=== PATIENT | male | born 1990 | race Two or more races ===

== ENCOUNTER 2019-06-01 10:56 | Emergency (ER) | payer SELFPAY ==
[~2019-06-01] VITALS: Ht 188 cm; Wt 102.5 kg
--- NOTE | 2019-06-01 12:05 | NUR ---
bib self c/o cough and congestion x over a month, denies cp, sob, n/v/d/. kept comfortable. will cont to monitor.
--- NOTE | 2019-06-01 12:10 | NUR ---
SVITLANA with patient for eval.
--- NOTE | 2019-06-01 12:19 | NUR ---
Patient discharged to home in stable condition. Written and verbal after care instructions given. Patient verbalizes understanding of instruction.
[2019-06-01 12:21] VITALS: BP 136/88
== END 2019-06-01 12:21 | disposition home or self-care (01) ==
LOC: ER 11:03
DX: R05 Cough (principal); F10.10 Alcohol abuse, uncomplicated; F17.200 Nicotine dependence, unspecified, uncomplicated; Y90.9 Presence of alcohol in blood, level not specified